=== PATIENT | male | born 1985 | race Caucasian/White ===

== ENCOUNTER 2022-06-21 19:33 | Emergency (ER) | payer BC ==
[2022-06-21] MEDS: Ondansetron 4 MG Tab.DIS PO ONE (22:00)
[2022-06-21] MEDS: Ibuprofen 400 MG Tab PO ONE (22:00)
[2022-06-21] MEDS: Acetaminophen 325 MG Tab PO ONE (22:00)
== END 2022-06-21 23:17 | disposition home or self-care (01) ==
LOC: MW.ED 19:33
DX: S62.112A Displaced fracture of triquetrum [cuneiform] bone, left wrist, initial encounter for closed fracture (principal); X50.1XXA Overexertion from prolonged static or awkward postures, initial encounter
CPT/HCPCS: 29125; 70450; 70450-26; 71045; 71045-26; 71250; 71250-26; 73110-26-LT; 73110-LT; 99284-25

== ENCOUNTER 2024-02-13 20:20 | Emergency (ER) | payer OTHER | END 2024-02-13 21:37 | disposition home or self-care (01) | LOC: MW.ED 20:20 | DX: S02.2XXA Fracture of nasal bones, initial encounter for closed fracture (principal); S00.83XA Contusion of other part of head, initial encounter; F10.90 Alcohol use, unspecified, uncomplicated; Y90.9 Presence of alcohol in blood, level not specified; V89.2XXA Person injured in unspecified motor-vehicle accident, traffic, initial encounter | CPT/HCPCS: 70450; 70450-26; 70486; 70486-26; 99283; 99284 ==